=== PATIENT | female | born 1955 | race Caucasian/White ===

== ENCOUNTER 2019-04-26 16:54 | Inpatient (IN) | payer MEDICAID ==
[~2019-04-26] VITALS: Ht 177.8 cm; Wt 85.0 kg
[2019-04-26 17:34] LABS: BASOPHILS % (AUTO) 0.4 % (0-1); EOSINOPHILS % (AUTO) 0.3 % (0-6); HEMATOCRIT 34.9 % (35.0-45.0); HEMOGLOBIN 12.5 g/dl (12.0-16.0); LYMPHOCYTES # (AUTO) 2.1 X10'3 (1.1-4.8); MEAN CORPUSCULAR HEMOGLOBIN 34.2 PG (27.0-31.0); MEAN CORPUSCULAR HGB CONC 35.7 g/dL (33.0-36.5); MEAN CORPUSCULAR VOLUME 95.8 FL (78-98); MONOCYTES # (AUTO) 0.5 X10'3 (0-0.9); NEUTROPHILS # (AUTO) 7.4 X10'3 (1.8-7.7); NEUTROPHILS % (AUTO) 73.3 % (42-75); PLATELET COUNT 293 X10'3 (140-440); RED BLOOD COUNT 3.64 X10'6 (4.20-5.60)
[2019-04-26 17:47] LABS: PARTIAL THROMBOPLASTIN TIME 28 SECONDS (22-32)
--- NOTE | 2019-04-26 17:47 | NUR ---
CALLED LEVEL 2 STROKE ALERT, PT HAS MILD SLURRED SPEECH, FACIAL ASYMETRY, LEFT SIDED DECRESED SENSATION IN FACE AND LOWER EXTREMITY, AND DIZZINESS THAT STARTED YESTERDAY.
[2019-04-26 17:51] LABS: ALANINE AMINOTRANSFERASE 22 U/L (12-78); ALBUMIN 3.5 G/DL (3.4-5.0); ALBUMIN/GLOBULIN RATIO 1.2 (1.1-1.5); ALKALINE PHOSPHATASE 69 IU/L (46-116); ANION GAP 12 (8-16); ASPARTATE AMINO TRANSFERASE 12 U/L (10-37); BILIRUBIN,TOTAL 0.2 MG/DL (0.1-1.0); BLOOD UREA NITROGEN 7 MG/DL (7-18); BUN/CREATININE RATIO 7.8 (6.6-38.0); CALCIUM 8.8 MG/DL (8.5-10.1); CHLORIDE 102 MMOL/L (99-107); GLUCOSE 106 MG/DL (70-104); POTASSIUM 3.2 MMOL/L (3.5-5.1); SODIUM 137 MMOL/L (135-145); TOTAL CARBON DIOXIDE 22.9 MMOL/L (24-32); TOTAL PROTEIN 6.5 G/DL (6.4-8.2); eGFR 64 ML/MIN
[2019-04-26] MEDS ORDERED: normal saline 1000ml 1,000 ML IV ONE (18:35)
[2019-04-26] MEDS ORDERED: aspirin 325mg tablet PO ONE (18:45)
--- NOTE | 2019-04-26 19:05 | NUR ---
PT HYPOTENSIVE, 80/50. CHECKED MANUAL. NOTIFIED DR HARRIS, NEW ORDER FOR 1L BOLUS NS.
[2019-04-26] MEDS ORDERED: normal saline 1000ML IV soln IVB ONE (19:10)
[2019-04-26] MEDS ORDERED: OLAN2.5T28 PO (20:15)
[2019-04-26] MEDS ORDERED: MELO-100 PO (20:15)
[2019-04-26] MEDS ORDERED: HYDR-3964 PO (20:15)
[2019-04-26] MEDS ORDERED: CITA40TA17 PO (20:15)
[2019-04-26] MEDS ORDERED: GABA-534 PO (20:15)
[2019-04-26] MEDS ORDERED: AMIT25TA9 PO (20:15)
--- NOTE | 2019-04-26 20:15 | NUR ---
PT [facility] HOSPITALIST, MED REC COMPLETED. HR 56, OTHERWISE VSS.
[2019-04-26 20:41] LABS: BASOPHILS % (AUTO) 0.6 % (0-1); EOSINOPHILS % (AUTO) 0.4 % (0-6); HEMATOCRIT 35.1 % (35.0-45.0); HEMOGLOBIN 12.4 g/dl (12.0-16.0); LYMPHOCYTES # (AUTO) 2.4 X10'3 (1.1-4.8); LYMPHOCYTES % (AUTO) 28.3 % (21-51); MEAN CORPUSCULAR HEMOGLOBIN 34.1 PG (27.0-31.0); MEAN CORPUSCULAR HGB CONC 35.3 g/dL (33.0-36.5); MEAN CORPUSCULAR VOLUME 96.6 FL (78-98); MEAN PLATELET VOLUME 8.1 FL (7.4-10.4); MONOCYTES # (AUTO) 0.4 X10'3 (0-0.9); NEUTROPHILS # (AUTO) 5.6 X10'3 (1.8-7.7); NEUTROPHILS % (AUTO) 65.7 % (42-75); PLATELET COUNT 235 X10'3 (140-440); RED BLOOD COUNT 3.63 X10'6 (4.20-5.60); WHITE BLOOD COUNT 8.5 X10'3 (4.5-11.0)
[2019-04-26] MEDS ORDERED: acetaminophen 325mg tablet PO PRN (20:50)
[2019-04-26] MEDS ORDERED: ondansetron/PF 4mg/2ml inj IV PRN (20:50)
[2019-04-26] MEDS ORDERED: mag hydrox/Alum hydrox/simeth 30ml oral suspension PO PRN (20:50)
[2019-04-26] MEDS ORDERED: magnesium hydroxide 30ml (MOM) UD suspension PO PRN (20:50)
[2019-04-26] MEDS ORDERED: amitriptyline 25mg tablet PO SCH (21:00)
--- NOTE | 2019-04-26 21:35 | NUR ---
Received pt from via feliz tiwari. Pt oriented to room and routine. Addendum: 04/26/19 at 2205 by Zara Benoit RN Amended: Links added.
[2019-04-26 21:42] LABS: CLARITY,URINE CLOUDY (Clear); COLOR,URINE YELLOW (Yellow); GLUCOSE, URINE NEGATIVE (Neg); KETONES,URINE NEGATIVE (Neg); LEUKOCYTE ESTERASE ,URINE SMALL (Neg); NITRITES, URINE NEGATIVE (Neg); OCCULT BLOOD,URINE NEGATIVE (Neg); PH,URINE 6.5 (4.8-8.0); PROTEIN,URINE NEGATIVE (Neg); UROBILINOGEN,URINE 0.2 E.U/dL (0.2-1.0)
[2019-04-26 21:49] LABS: UA COLLECTION TYPE CLN CATCH MIDSTREAM
[2019-04-26 21:50] LABS: BACTERIA,URINE 1+ /HPF (Neg); RBC,URINE NONE SEEN /HPF (0-2); SQUAMOUS EPITHELIAL CELL,UR FEW /LPF (FEW)
[2019-04-26] MEDS: gabapentin 400mg capsule PO SCH (22:18)
[2019-04-26] MEDS: HYDROcodone/acetaminophen 5mg/325mg tablet PO PRN (22:19)
[2019-04-26] MEDS: OLANZapine 2.5MG tablet PO SCH (22:37)
[2019-04-26] MEDS: normal saline 1000ml 1,000 ML IV SCH (22:38)
[2019-04-27 02:00] VITALS: BP 95/52
[2019-04-27] MEDS: HYDROcodone/acetaminophen 5mg/325mg tablet PO SCH ×3 (02:00→14:00)
[2019-04-27 06:00] VITALS: BP 119/60
--- NOTE | 2019-04-27 06:06 | NUR ---
Problems reprioritized. Patient report given, questions answered & plan of care reviewed with [facility] [place]. Addendum: 04/27/19 at 0607 by Zara Benoit RN Amended: Links added.
[2019-04-27 06:15] LABS: BASOPHILS % (AUTO) 0.5 % (0-1); EOSINOPHILS # (AUTO) 0.1 X10'3 (0-0.9); HEMATOCRIT 36.2 % (35.0-45.0); HEMOGLOBIN 12.5 g/dl (12.0-16.0); LYMPHOCYTES # (AUTO) 2.7 X10'3 (1.1-4.8); LYMPHOCYTES % (AUTO) 39.8 % (21-51); MEAN CORPUSCULAR HEMOGLOBIN 33.6 PG (27.0-31.0); MEAN CORPUSCULAR HGB CONC 34.5 g/dL (33.0-36.5); MEAN CORPUSCULAR VOLUME 97.4 FL (78-98); MEAN PLATELET VOLUME 8.3 FL (7.4-10.4); MONOCYTES # (AUTO) 0.5 X10'3 (0-0.9); MONOCYTES % (AUTO) 6.7 % (2-12); NEUTROPHILS # (AUTO) 3.5 X10'3 (1.8-7.7); PLATELET COUNT 221 X10'3 (140-440); RED BLOOD COUNT 3.71 X10'6 (4.20-5.60); RED CELL DISTRIBUTION WIDTH 13.2 % (11.5-14.5); WHITE BLOOD COUNT 6.8 X10'3 (4.5-11.0)
--- NOTE | 2019-04-27 06:20 | NUR ---
RECEIVED REPORT FROM [employer] [facility]
[2019-04-27 06:37] LABS: ALANINE AMINOTRANSFERASE 21 U/L (12-78); ALBUMIN 3.2 G/DL (3.4-5.0); ALBUMIN/GLOBULIN RATIO 1.1 (1.1-1.5); ALKALINE PHOSPHATASE 66 IU/L (46-116); ANION GAP 11 (8-16); ASPARTATE AMINO TRANSFERASE 13 U/L (10-37); BILIRUBIN,TOTAL 0.1 MG/DL (0.1-1.0); BLOOD UREA NITROGEN 7 MG/DL (7-18); BUN/CREATININE RATIO 9.3 (6.6-38.0); CALCIUM 8.5 MG/DL (8.5-10.1); CHLORIDE 112 MMOL/L (99-107); CREATININE 0.75 MG/DL (0.40-0.90); GLUCOSE 98 MG/DL (70-104); POTASSIUM 3.5 MMOL/L (3.5-5.1); SODIUM 145 MMOL/L (135-145); TOTAL CARBON DIOXIDE 22.3 MMOL/L (24-32); TOTAL PROTEIN 6.1 G/DL (6.4-8.2); eGFR 79 ML/MIN
[2019-04-27 06:41] LABS: CHOL/HDL RATIO 5.8 (0.00-4.99); CHOLESTEROL 161 MG/DL (0-200); HDL CHOLESTEROL 28 MG/DL (35-60); LDL CHOLESTEROL 103 MG/DL (50-100); TRIGLYCERIDES 254 MG/DL (20-135)
[2019-04-27] MEDS ORDERED: non-formulary drug (Citalopram Hydrobromide (Citalopram HBr) 1 TAB) PO SCH (08:00)
[2019-04-27] MEDS ORDERED: citalopram 20mg tablet PO SCH (08:00)
[2019-04-27] MEDS ORDERED: heparin, porcine 5000 units/ml vial SQ SCH (08:00)
[2019-04-27] MEDS: gabapentin 400mg capsule PO SCH ×3 (08:24→16:59)
[2019-04-27] MEDS: OLANZapine 2.5MG tablet PO SCH ×2 (08:25→13:17)
[2019-04-27 10:00] VITALS: BP 119/61
[2019-04-27] MEDS ORDERED: pneumococcal 23-VAL P-sac vacc 25 mcg/0.5ml vial IMVAC ONE (10:00)
[2019-04-27] MEDS ORDERED: FLU VACC QS2019-20 36MOS UP/PF 60 MCG/0.5 ML SYRINGE IMVAC ONE (10:00)
[2019-04-27] MEDS ORDERED: LORazepam 2 mg/ml vial IV ONE (10:10)
[2019-04-27] MEDS ORDERED: magnesium Cl slow-release 64mg tablet PO PRN (10:40)
[2019-04-27] MEDS ORDERED: potassium CL 10mEq/100ml bag 100 ML IV PRN (10:40)
[2019-04-27] MEDS ORDERED: potassium Cl 20 mEq SR tablet PO PRN ×2 (10:40)
[2019-04-27] MEDS ORDERED: magnesium 4gm in 100ml NS 100 ML IV PRN (10:40)
--- NOTE | 2019-04-27 11:02 | NUR ---
Student documentation: I have reviewed all interventions, assessments performed and documented by Kandice Tolbert. Student Medication Administration: For this medication-pass time frame, all medication were reviewed, dispensed, administered and documented per hospital policy by Kandice Tolbert.
[2019-04-27 14:00] VITALS: BP 154/83
[2019-04-27] MEDS: normal saline 1000ml 1,000 ML IV SCH (15:22)
--- NOTE | 2019-04-27 16:36 | NUR ---
currently the flu vaccine is not stocked in the refrigerator at this time
--- NOTE | 2019-04-27 17:10 | NUR ---
computer scanner not working to scan vaccine and gabapentin into [employer], checked meds prior to admin, continue to monitor
[2019-04-27] MEDS ORDERED: MECL12.584 PO (17:54)
[2019-04-27] MEDS ORDERED: CHLO25TA2 PO (17:54)
[2019-04-27] MEDS ORDERED: AMLO5TAB4 PO (17:54)
[2019-04-27] MEDS ORDERED: meclizine 12.5mg tablet PO ONE (17:55)
[2019-04-27] MEDS: HYDROcodone/acetaminophen 5mg/325mg tablet PO PRN (18:17)
--- NOTE | 2019-04-27 18:19 | NUR ---
gave report to kenny trent pt is eating dinner w/fam at bedside, and pt is ready to be d/c
[2019-04-27 18:30] VITALS: BP 140/69
[2019-04-28] MEDS ORDERED: CEFD300C3 PO (19:08)
== END 2019-04-27 19:00 | disposition home or self-care (01) | DRG 111 ==
LOC: ER 16:55 → ORTHO 4S 21:33 → CMPBEDREQ 21:35
PROVIDERS: ADMIT Internal Medicine; ATTEND Family Medicine
PROC: 3E0234Z Introduction of Serum, Toxoid and Vaccine into Muscle, Percutaneous Approach (ICD-10-PCS; principal; 2019-04-27)
DX: H81.10 Benign paroxysmal vertigo, unspecified ear (principal); E86.0 Dehydration; F17.200 Nicotine dependence, unspecified, uncomplicated; F32.9 Major depressive disorder, single episode, unspecified; F41.9 Anxiety disorder, unspecified; G89.29 Other chronic pain; M54.5 Low back pain; N39.0 Urinary tract infection, site not specified; R29.810 Facial weakness; Z23 Encounter for immunization; Z71.6 Tobacco abuse counseling
CPT/HCPCS: 36415; 70450; 70551; 71045; 80053; 80061; 81001; 83036; 84484; 85025; 85610; 85730; 87081; 87088; 90732; 93005; 93306; 93880; 96360; 97110; 97112; 97116; 97161; 99285; G0378; J1644; J2060; J7030; J8597

== ENCOUNTER 2025-05-18 22:19 | Emergency (ER) | payer MEDICAID, MEDICARE ==
[~2025-05-18] VITALS: Ht 152.4 cm; Wt 59.1 kg
[~2025-05-18 22:19] MED LIST: AMIT25TA22 PO; AMLO5TAB4 PO; CHLO25TA2 PO; CITA40TA17 PO; GABA-535 PO; HYDR-3964 PO; MECL-226 PO; MELO-100 PO; OLAN2.5T77 PO
[2025-05-18 22:24] VITALS: BP 154/77; PULSE 97; O2SAT 99
--- NOTE | 2025-05-18 23:31 | Physician Documentation ---
History of Present Illness ~ Chief Complaint: Hip pain Stated Complaint: LEFT HIP PAIN Time Seen by MD: 22:57 Primary Medical Doctor: [facility] HPI Acute on chronic hip pain without new injury, fever or recent ill contacts. Reports that she was referred to the emergency department for pain management by physicians. Patient to be in follow up by ortho and primary care. Also has pain management. Reports that her orthopedist is in contact with the pain management to increase her current Laurel 04/28/2025 3 times a day that her pain management until scheduled surgery. Medication Reconciliation Allergies: Coded Allergies: No Known Allergies (Unverified , 04/26/19) Scheduled Amitriptyline Hcl (Amitriptyline Hcl), 2 TAB PO HS, (Reported) Amlodipine Besylate (Norvasc), 1 TAB PO DAILY Chlorthalidone (Chlorthalidone), 0.5 TAB PO DAILY Citalopram Hydrobromide (Citalopram HBr), 1 TAB PO DAILY, (Reported) Gabapentin (Gabapentin), 400 MG PO QID, (Reported) Hydrocodone Bit/Acetaminophen (Hydrocodon-Acetaminophen 5-325), 1 TAB PO Q6H, (Reported) Meloxicam* (Meloxicam*), 1 TAB PO DAILY, (Reported) Olanzapine (Olanzapine), 1 TAB PO TID, (Reported) Scheduled PRN Meclizine HCl (Meclizine HCl), 1 TAB PO Q8H PRN for dizziness/vertigo Past Medical History Past Medical History: No Pertinent History Past Surgical History: noncontributory Patient History: Patient reports no known family medical history. Drug Use: none Lives In: Home Occupation: employed Review of Systems Constitutional: Denies: fever Musculoskeletal: Reports: see HPI Physical Exam Vital Signs: RN Vital Signs have been reviewed: Yes, Temperature: 97.6, Source: Temporal, Heart Rate: 97, Respiratory Rate: 16, BP: 154/77, Pulse Oximetry: 99, Weight: 59.100 General Appearance: alert, WD/WN, mild distress Head: normal inspection EENT: PERRL/EOMI Neck: non-tender Respiratory: no respiratory distress Chest: no accessory muscle use Hip: limited ROM, soft tissue tenderness Distal Function: no motor deficit, no sensory deficit Skin: normal color Lymphatic: normal inspection Neurologic: oriented x4 Psychiatric: normal mood/affect Progress Results/Orders Results/Orders Completed Orders - HANK CHAVEZ PAC Morphine 4mg/Ml Inj. (Morphine Inj.) (05/18/25 23:43) Vital Signs 05/18/25 05/18/25 05/18/25 22:24 23:48 23:59 Temp 97.6 97.6 Pulse 97 Resp 16 18 B/P (MAP) 154/77 Pulse Ox 99 Medical Decision Making Additional information obtaine: family Findings 69-year-old female received breakthrough pain management in the emergency department with a single injection of morphine. Tolerated injection well. She understands she may continue with your current medications as prescribed. She is encouraged to continue with connecting her pain management with the orthopedist for greater pain management control. No clinical suspicion for septic hip. No indication for advanced imaging as she just had CT imaging done eight days ago. Safely discharged in the emergency department. Differential Dx:Considerations: Include: Avascular necrosis, Arthritis, Arthritis-Septic, Bursitis, Fracture-hip, Transient synovitis Departure Disposition: HOME / SELF CARE / HOMELESS Impression: Primary Impression: Hip pain Qualified Codes: M25.559 - Pain in unspecified hip Additional Impression: Back pain Qualified Codes: M54.9 - Dorsalgia, unspecified; G89.29 - Other chronic pain Condition: Improved Discharge Instructions: Arthritis, Nonspecific Additional Instructions: Please continue with your follow up with your surgeon and your pain management for medication review and adjustment as needed. Tonight in the emergency department you received one time injection and morphine. You can take your additional Laurel tonight if pain persists. Thank you for your in the emergency department [facility]. Referrals: NO PRIMARY CARE PROVIDER (PCP) Education Educated: Patient Educated regarding: diagnosis, treatment, prognosis, need for follow up Signature Scribe Signature: . Attestation: . HANK CHAVEZ PAC May 18, 2025 23:31
[2025-05-18 23:48] VITALS: TEMP 97.6
[2025-05-18 23:59] VITALS: RESP 18
[2025-05-18] MEDS: morphine 4 MG/ML inj SYRINge IM STA (23:59)
--- NOTE | 2025-05-22 06:05 | ELECTROCARDIOGRAPH REPORT ---
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 Reading MD: Dr. Johnathan Ahuja Measurements Intervals Vaughn Rate: 74 P: 0 VA: 0 QRS: 62 QRSD: 130 T: 24 QT: 416 QTc: 462 Interpretive Statements Atrial fibrillation Right bundle branch block Electronically Signed On 05-22-2025 6:15:[address] Johnathan Ahuja Please click the below link to view image of tracing.
== END 2025-05-19 00:03 | disposition home or self-care (01) ==
LOC: ER 22:20
DX: G89.29 Other chronic pain (principal); M54.9 Dorsalgia, unspecified; M25.552 Pain in left hip; Z79.899 Other long term (current) drug therapy
CPT/HCPCS: 96372; 99283; J2270